=== PATIENT | male | born 1980 | race Native Hawaiian/Other Pacific Islander ===

== ENCOUNTER 2020-02-20 13:22 | Emergency (ER) | payer OTHER, SELFPAY ==
[2020-02-20 13:26] VITALS: BP 153/87; PULSE 82; RESP 16; TEMP 36.7; O2SAT 97
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
[2020-02-20] MEDS: HYDROCODONE/ACET 5/325 TABLET 1 TAB PO (14:28)
== END 2020-02-20 14:53 | disposition home or self-care (01) ==
PROVIDERS: Emergency Provider Nurse Practitioner Family
DX: S62.322A Displaced fracture of shaft of third metacarpal bone, right hand, initial encounter for closed fracture (principal); X58.XXXA Exposure to other specified factors, initial encounter; Y93.74 Activity, frisbee
CPT/HCPCS: 29125; 73130; 99283; 99284

== ENCOUNTER → 2024-12-03 08:57 | Outpatient (CLI) | payer OTHER, SELFPAY ==
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
== END ==
PROVIDERS: Referring Provider Nurse Practitioner Family; Visit Provider Nurse Practitioner Family
DX: S16.1XXA Strain of muscle, fascia and tendon at neck level, initial encounter (principal); M50.30 Other cervical disc degeneration, unspecified cervical region
CPT/HCPCS: 72040